=== PATIENT | male | born 1945 | race Caucasian/White ===

== ENCOUNTER → 2016-06-27 | Outpatient (CLI) | payer MEDICARE, OTHER ==
--- NOTE | 2016-06-27 13:28 | RAD ---
EXAM DESCRIPTION: Left hand series. CLINICAL HISTORY: Left hand pain. COMPARISON: None. TECHNIQUE: Three views were submitted for evaluation. FINDINGS: No fracture, dislocation, or suspicious radiopaque foreign body is seen. Soft tissues are unremarkable. Further imaging could be considered if there is clinical concern for an occult scaphoid fracture (pain over the anatomical snuff box). IMPRESSION: Calcifications noted within the triangular fiber cartilage possibly representing calcium pyrophosphate deposition disease. The remaining study is unremarkable. Electronically signed by: Dickson Carpenter MD 06/27/2016 13:27
== END | disposition home or self-care (01) ==
LOC: RAD 10:10
PROVIDERS: ATTEND Orthopaedic Surgery
DX: M79.642 Pain in left hand (principal)

== ENCOUNTER → 2016-08-18 | Outpatient (CLI) | payer MEDICARE, OTHER | END | disposition home or self-care (01) | LOC: RESP 10:21 | PROVIDERS: ATTEND Orthopaedic Surgery | DX: S72.041D Displaced fracture of base of neck of right femur, subsequent encounter for closed fracture with routine healing (principal) ==

== ENCOUNTER 2016-09-02 05:32 | Day surgery (SDC) | payer MEDICARE, OTHER ==
--- NOTE | 2016-09-01 10:07 | HP ---
CHIEF COMPLAINT: Right hand numbness. HISTORY OF PRESENT ILLNESS: Mr. Ardon is a 71-year-old male with a history of right hand numbness in the distribution of the median nerve. He has had this going on for quite a while and now has some numbness at rest. He states that the numbness does wake him up at night. He denies any neurologic symptoms in the distribution of the ulnar nerve. He denies any radiation or pain or trauma. He has no symptoms proximal to the wrist. PAST SURGICAL HISTORY: None. MEDICATIONS: 1. Norvasc. 2. Toprol. 3. Flomax. 4. Lipitor. CODE STATUS: Full code. IMMUNIZATIONS: Up to date. SOCIAL HISTORY: The patient does not drink, smoke or use any illicit drugs. FAMILY HISTORY: None pertinent to today's complaint. REVIEW OF SYSTEMS: Negative except as indicated in the History of Present Illness. PHYSICAL EXAMINATION: VITAL SIGNS: Blood pressure 158/81. Pulse 82. Height 5'8". Weight 170. MENTAL STATUS: The patient is awake, alert, and is able to give a good history and participate in the physical. The patient is oriented to person, place and time. SKIN: Normal tone and turgor. MUSCULOSKELETAL: He has positive Phalen's and Tinel's today. He has positive carpal compression test. He has full practice director strength. He has full abduction strength. ASSESSMENT: 1. Carpal tunnel syndrome. PLAN: The plan at this point is for carpal tunnel release. We have discussed the risks, benefits, and alternatives to that and the patient has given informed consent. #[id number] [facility]
[2016-09-02] MEDS ORDERED: SODIUM CHL 0.9% 100ML MINI-BAG 100 ML IVPB ONE (05:52)
[2016-09-02] MEDS ORDERED: ceFAZolin SODIUM 1 GM VIAL ONE (05:52)
[2016-09-02] MEDS ORDERED: LACTATED RINGERS 1,000 ML ONE (05:52)
[2016-09-02] MEDS ORDERED: BUPIVACAINE 0.25% INJ 30 ML VIAL INJ ONE (06:33)
[2016-09-02] MEDS ORDERED: LIDOCAINE 1% 50 ML VIAL INJ ONE (06:33)
[2016-09-02 07:40] VITALS: TEMP 97.4
[2016-09-02] MEDS ORDERED: fentaNYL CITRATE INJ 50 MCG/ML AMP ONE (08:29)
[2016-09-02] MEDS ORDERED: MIDAZOLAM INJ 5 MG/5 ML VIAL ONE (08:29)
[2016-09-02] MEDS: ceFAZolin SODIUM 1 GM VIAL ONE ×2 (09:11→09:23)
[2016-09-02] MEDS: VANCOMYCIN HCL INJ 1,000 MG VIAL IVPB ONE ×2 (09:12→09:23)
[2016-09-02 10:19] VITALS: BP 138/82; O2SAT 99
[2016-09-02] MEDS ORDERED: PROPOFOL 200 MG/20 ML VIAL IV ONE (12:00)
[2016-09-02] MEDS ORDERED: LIDOCAINE 1% 10 ML VIAL INJ ONE (12:00)
--- NOTE | 2016-09-03 10:19 | OP ---
DATE OF PROCEDURE: 09/02/16 PREOPERATIVE DIAGNOSIS: 1. Carpal tunnel syndrome. POSTOPERATIVE DIAGNOSIS: 1. Carpal tunnel syndrome. PROCEDURE: 1. Carpal tunnel release. SURGEON: Stewart Gardner MD. CHARTERED FINANCIAL ANALYST: Link Bain CST, SA-C. ANESTHESIA: Local with sedation. COMPLICATIONS: None. FINDINGS: Thickening of the transverse carpal ligament and some obvious thenar atrophy. INDICATION: The patient has a history of carpal tunnel syndrome type symptoms that were becoming intrusive to his daily activities. Because of these symptoms and the failure to gain relief with conservative measures, he requested operative intervention. After discussing the risks, benefits and alternatives to that, the patient has given informed consent for carpal tunnel release. PROCEDURE: The patient was brought to the Operating Room and placed in the supine position. Sedation was administered and local anesthetic was injected into the operative area under sterile conditions. After the injection of anesthetic, the arm was sterilely prepped and draped. A longitudinal incision was made directly overlying the transverse carpal ligament and blunt dissection was carried down to the ligament. The transverse carpal ligament was sharply transected along its length and a [place] elevator was used to ensure complete release of the ligament. Once release had been confirmed, the wound was thoroughly irrigated and the wound was closed with Nylon suture. A sterile dressing was placed and the patient was taken to the Day Surgery Unit. POSTOPERATIVE INSTRUCTIONS: The patient has been encouraged to do range of motion of the digits and will followup with us in two days. #[id number] [facility]
== END 2016-09-02 10:05 | disposition home or self-care (01) ==
LOC: AMB 05:32
PROVIDERS: ATTEND Orthopaedic Surgery
DX: G56.01 Carpal tunnel syndrome, right upper limb (principal); Z79.899 Other long term (current) drug therapy
CPT/HCPCS: 01810; 64721; J0690; J2250; J3010; J3370; J3490; J7050; J7120

== ENCOUNTER → 2017-04-08 | Outpatient (CLI) | payer MEDICARE, OTHER | END | disposition home or self-care (01) | LOC: GMAJ 10:36 | PROVIDERS: ATTEND Family Medicine | DX: Z12.5 Encounter for screening for malignant neoplasm of prostate (principal) ==

== ENCOUNTER → 2018-03-15 | Outpatient (CLI) | payer MEDICARE, OTHER | LOC: GMAJ 11:28 | PROVIDERS: ATTEND Family Medicine | DX: N40.1 Benign prostatic hyperplasia with lower urinary tract symptoms (principal) ==

== ENCOUNTER 2018-05-03 15:54 | Emergency (ER) | payer MEDICARE, OTHER ==
[2018-05-03 16:19] VITALS: TEMP 97.8
--- NOTE | 2018-05-03 16:47 | ED.PDOC ---
History of Present Illness - General Chief Complaint: Upper Extremity Injury Stated Complaint: right shoulder injury Time Seen by Provider: 05/03/18 16:45 Exam Limitations: no limitations - History of Present Illness Initial Comments: HE MOVED HIS RIGHT SHOULDER AND SOMEHOW INJURED HIS RIGHT SHOULDER. NOW IT IS PAINFUL ON MOTION. THERE WAS NO TRAUMATIC INJURY REPORTED. Occurred: just prior to arrival Pain - Upper Extremity: moderate: Shoulder, right Method of Injury: twisted Improving Factors: immobilization Worsening Factors: movement Allergies/Adverse Reactions: Allergies Acetaminophen [From Vicodin] Allergy (Verified 03/03/15 12:22) Hydrocodone [From Vicodin] Allergy (Verified 03/03/15 12:22) Propoxyphene [From Darvocet-N] Allergy (Verified 03/03/15 12:22) Home Medications: Ambulatory Orders Multiple Vitamins W/ Minerals [Multivital] 1 tab PO DAILY 03/03/15 amLODIPine BESYLATE [Norvasc] 5 mg PO DAILY@0700 03/03/15 Terazosin [Hytrin] 5 mg PO DAILY@0700 09/01/16 Tramadol HCl [Ultram] 50 mg PO Q4H 30 Days tab 09/02/16 Review of Systems - Review of Systems Constitutional: States: no symptoms reported EENTM: States: no symptoms reported Respiratory: States: no symptoms reported Cardiology: States: no symptoms reported Gastrointestinal/Abdominal: States: no symptoms reported Genitourinary: States: no symptoms reported Musculoskeletal: States: joint pain Neurological: States: no symptoms reported Endocrine: States: no symptoms reported Hematologic/Lymphatic: States: no symptoms reported Past Medical History (General) - Patient Medical History Hx Cardiac Disorders: Yes Hx Congestive Heart Failure: No Hx Hypertension: Yes Hx Diabetes: No Hx MRSA: No - Vaccination History Hx Influenza Vaccination: Yes - Social History Hx Tobacco Use: Yes Family Medical History - Family History Father Family History: Unknown Living Status: Physical Exam - Physical Exam General Appearance: Alert, No apparent distress, Well Developed, Well Groomed, Well Hydrated, Well Nourished Eyes, Ears, Nose, Throat Exam: PERRL/EOMI Neck: non-tender, supple Cardiovascular/Respiratory: regular rate, rhythm, normal peripheral pulses, no JVD Abdominal Exam: non-tender, no organomegaly Shoulder Exam: normal inspection, limited ROM, soft tissue tenderness - NO OBVIOUS DEFORMITY BUT LIMITED ROM Elbow/Forearm Exam: normal inspection, non-tender Hand Exam: normal inspection Neuro/Tendon: normal sensation, normal motor functions, normal tendon functions Progress - Results/Orders Results/Orders: X RAYS ARE REPORTED. NO FRACTURE OR DISLOCATION NOTED PER RADIOLOGIST. Departure - Departure Clinical Impression: Sprain and strain of shoulder and upper arm Time of Disposition: 17:11 Disposition: Discharge to Home or Self Care Condition: Good Departure Forms: ED Discharge - Pt. Copy, Patient Portal Self Enrollment Instructions: DI for Arm Pain, Shoulder Sprain Referrals: Michael Evangelista MD [Primary Care Provider] - 1-2 Weeks Home Medications: Ambulatory Orders Multiple Vitamins W/ Minerals [Multivital] 1 tab PO DAILY 03/03/15 amLODIPine BESYLATE [Norvasc] 5 mg PO DAILY@0700 03/03/15 Terazosin [Hytrin] 5 mg PO DAILY@0700 09/01/16 Tramadol HCl [Ultram] 50 mg PO Q4H 30 Days tab 09/02/16 Additional Instructions: CONTINUE HOME MEDS
--- NOTE | 2018-05-03 16:50 | RAD ---
EXAM DESCRIPTION: Shoulder,Right 2 or More Views CLINICAL HISTORY: 73 years Male, pain COMPARISON: None. FINDINGS: Right shoulder 2 views. Mild acromioclavicular osteoarthrosis. No fracture or dislocation. Soft tissues are unremarkable. IMPRESSION: No acute abnormality. Electronically signed by: Mo Zapata MD 05/03/2018 4:49 PM [facility]
[2018-05-03 17:07] VITALS: O2SAT 97
[2018-05-03 17:54] VITALS: BP 163/92
== END 2018-05-03 17:35 | disposition home or self-care (01) ==
LOC: ER 15:54
DX: S43.401A Unspecified sprain of right shoulder joint, initial encounter (principal); I10 Essential (primary) hypertension; I51.9 Heart disease, unspecified; Z87.891 Personal history of nicotine dependence; Z79.899 Other long term (current) drug therapy; Z88.5 Allergy status to narcotic agent; Z88.6 Allergy status to analgesic agent; X50.9XXA Other and unspecified overexertion or strenuous movements or postures, initial encounter; Y92.9 Unspecified place or not applicable

== ENCOUNTER → 2018-09-15 | Outpatient (CLI) | payer MEDICARE, OTHER ==
--- NOTE | 2018-09-16 09:49 | US ---
EXAM DESCRIPTION: Testicular: Ultrasound. CLINICAL HISTORY: 73 years Male N45.3 COMPARISON: None. TECHNIQUE: Transcutaneous scanning ; two-dimensional and Doppler modes. FINDINGS: Dimensions of the right testicle are 3.8 x 2.2 x 1.7 cm, with normal echogenicity and normal color Doppler flow. Epididymal head measures 8.3 x 5.3 x 3.9 mm, with normal echogenicity and normal color Doppler flow. No scrotal wall thickening. Mild to moderate Hydrocele. Dimensions of the left testicle are 3.1 x 2.0 x 1.6 cm, with normal echogenicity and normal color Doppler flow. Epididymal head measures 8 mm, with large multiseptated cyst superiorly projecting from the head. 5.6 x 4.2 x 2.9 cm. Otherwise normal echogenicity and normal color Doppler flow in the body. Vascular structure lateral and inferior in the left scrotum increases vascularity with Valsalva maneuver. No scrotal wall thickening. Small Hydrocele. IMPRESSION: 1. Normal ultrasound of the right epididymis and right lobe. No scrotal wall thickening. Mild to moderate hydrocele. 2. Large multiseptated cyst projecting from the superior left epididymal head with greatest diameter 5.6 cm. Nonvascular. Remainder of the epididymis is unremarkable. Normal vascularity and appearance of the left testicle. 3. Varicocele lateral and inferior in the left scrotum. Minimal hydrocele. Electronically signed by: Link Ordonez MD 09/16/2018 9:47 AM CDT
== END ==
LOC: US 14:55
PROVIDERS: ATTEND Family Medicine
DX: N43.3 Hydrocele, unspecified (principal); N50.3 Cyst of epididymis; I86.1 Scrotal varices

== ENCOUNTER → 2019-03-14 | Outpatient (CLI) | payer MEDICARE, OTHER ==
--- NOTE | 2019-03-14 10:19 | RAD ---
EXAM DESCRIPTION: Hand,Left 3 Views CLINICAL HISTORY: PAIN IN LEFT HAND COMPARISON: None Available. TECHNIQUE: AP, LATERAL, AND OBLIQUE FINDINGS: The visualized bones appear well mineralized. No acute fracture or dislocation. Chondrocalcinosis of the triangular fibrocartilage. Mild degenerative changes identified in the metacarpophalangeal joints. The soft tissues appear grossly unremarkable. IMPRESSION: Chondrocalcinosis of the triangular fibrocartilage. Mild degenerative changes identified in the metacarpophalangeal joints. Electronically signed by: Lara Martinez MD 03/14/2019 10:17 AM [facility]
== END ==
LOC: RAD 09:44
PROVIDERS: ATTEND Orthopaedic Surgery
DX: M11.242 Other chondrocalcinosis, left hand (principal); M19.042 Primary osteoarthritis, left hand

== ENCOUNTER → 2019-04-25 | Outpatient (CLI) | payer MEDICARE, OTHER | LOC: GMAJ 10:48 | PROVIDERS: ATTEND Family Medicine | DX: Z12.5 Encounter for screening for malignant neoplasm of prostate (principal); I10 Essential (primary) hypertension; E78.2 Mixed hyperlipidemia ==